=== PATIENT | male | born 1985 | race Two or more races ===

== ENCOUNTER 2024-02-20 02:30 | Emergency (ER) | payer MEDICAID, OTHER ==
[~2024-02-20] VITALS: Ht 160 cm; Wt 80.2 kg
[2024-02-20 02:39] VITALS: BP 139/94; PULSE 85; RESP 16; O2SAT 98
[2024-02-20] MEDS: CALAMINE TOPical LOTION180 ML TOP ONE (03:30)
[2024-02-20] MEDS: DexAMETHasone SOD PHOS 10MG/1ML VIAL INJ IM ONE (03:55)
== END 2024-02-20 04:32 | disposition home or self-care (01) ==
LOC: ER 02:30
DX: L25.9 Unspecified contact dermatitis, unspecified cause (principal)
CPT/HCPCS: 96372; 99283; J1100

== ENCOUNTER 2024-08-15 18:53 | Emergency (ER) | payer MEDICAID ==
[~2024-08-15] VITALS: Ht 160 cm; Wt 79.6 kg
[2024-08-15 20:37] LABS: Chloride 104 mmol/L (98-107); Potassium 4.3 mmol/L (3.5-5.1); Sodium 139 mmol/L (136-145)
[2024-08-15 20:38] LABS: Anion Gap 4 (5-15); Basophils # (auto) 0 10 ^3/uL (0-0.2); Basophils % (auto) 0.2 % (0.0-2.0); Carbon Dioxide 31 mmol/L (20-31); Eosinophils # (auto) 0 10 ^3/uL (0-0.8); Eosinophils % (auto) 0.3 % (0.0-7.0); Hematocrit 42.5 % (41.0-53.0); Hemoglobin 14.8 g/dL (13.5-17.5); Lymphocytes # (auto) 0.9 10 ^3/uL (0.4-5.4); Lymphocytes % (auto) 7.6 % (10.0-50.0); Mean Corpuscular Hemoglobin 30.2 pg (28.0-32.0); Mean Corpuscular Hgb Conc. 34.9 g/dL (32.0-36.0); Mean Corpuscular Volume 86.4 fL (80.0-100.0); Monocytes # (auto) 0.8 10 ^3/uL (0-1.3); Monocytes % (auto) 6.7 % (0.0-12.0); Neutrophils # (auto) 9.9 10 ^3/uL (1.6-8.6); Neutrophils % (auto) 85.2 % (37.0-80.0); Platelet Count (auto) 389 10^3/uL (140-450); Red Blood Cells 4.92 10^6/uL (4.5-5.90); Red Cell Distribution Width 12.4 % (11.8-14.3); White Blood Cell 11.7 10^3/uL (4.4-10.8)
[2024-08-15] MEDS ORDERED: AZIT-43 PO (20:40)
[2024-08-15] MEDS ORDERED: ACET500T58 PO (20:40)
[2024-08-15] MEDS ORDERED: PRED20TA2 PO (20:40)
[2024-08-15] MEDS ORDERED: ALBUAER3 IN (20:40)
--- NOTE | 2024-08-15 20:41 | ED.PDOC ---
SOB-HPI HPI Comments 39-year-old male presents to ER with complaints of cough x2 weeks. Patient reports he has been experiencing productive cough with yellow phlegm along with intermittent body aches/chills and on/off frontal headache x2 weeks. Patient also reports shortness of breath x1 day that he states his present with coughing only, denying any shortness of breath at rest. He reports 8/10 frontal headache pain and reports he has been using [id number] NyQuil for symptoms out relief. Patient presents to ER ambulatory on arrival, afebrile, with steady gait, in no distress. Denies fever, chest pain, hemoptysis, nausea/vomiting, sore throat, earache, dizziness or any further symptoms/complaints Chief Complaint: Flu like Time Seen by MD: 19:35 Primary Care Provider: UNKNOWN Reviewed notes: Nurses Notes, Medications, Allergies Information Source: Patient Mode of Arrival: Ambulatory Past Medical History PAST MEDICAL HISTORY: Asthma, HTN Surgical History: Denies all surgeries Family History Family History: Unknown Social History Smoker: Non-Smoker Alcohol: Denies ETOH Use Drugs: Denies Drug Use Lives In: Home Constitutional: reports: others (As stated in HPI) EENTM: denies: blurred vision, double vision, ear bleeding, ear discharge, ear drainage, ear pain, ear ringing, eye pain, eye redness, hearing loss, mouth pain, mouth swelling, nasal discharge, nose bleeding, nose congestion, nose pain, photophobia, tearing, throat pain, throat swelling, voice changes, others Respiratory: reports: others (As stated in HPI) Cardiovascular: denies: chest pain, dizzy spells, diaphoresis, Dyspnea on exertion, edema, irregular heart beat, left arm pain, lightheadedness, palpitations, PND, syncope, others Gastrointestinal: denies: abdomen distended, abdominal pain, blood streaked bowels, constipated, diarrhea, dysphagia, difficulty swallowing, hematemesis, melena, nausea, poor appetite, poor fluid intake, rectal bleeding, rectal pain, vomiting, others Genitourinary: denies: burning, dysuria, flank pain, frequency, hematuria, incontinence, penile discharge, penile sore, pain, testicle pain, testicle swelling, urgency, others Neurological: reports: others (As stated in HPI) Musculoskeletal: denies: back pain, gout, joint pain, joint swelling, muscle pain, muscle stiffness, neck pain, others Integumetry: denies: bruises, change in color, change in hair/nails, dryness, laceration, lesions, lumps, rash, wounds, others Allergic/Immunocompromised: denies: Difficulty Healing, Frequent Infections, Hives, Itching, others Hematologic/Lymphatic: denies: anemia, blood clots, easy bleeding, easy bruising, swollen glands, others Endocrine: denies: excessive hunger, excessive sweating, excessive thirst, excessive urination, flushing, intolerance to cold, intolerance to heat, unexplained weight gain, unexplained weight loss, others Psychiatric: denies: anxiety, bipolar disorder, depression, hopeless, panic disorder, schizophrenia, sleepless, suicidal, others Physical Exam General Appearance: No Apparent Distress, Obese HEENT: Normal ENT Inspection, PERRL/EOMI, Pharynx Normal, TMs Normal Neck: Full Range of Motion, Non-Tender, Normal Respiratory: Chest Non-Tender, Decreased Breath Sounds (Slightly noted to bilateral upper lung adair), Lungs Clear, No Accessory Muscle Use, No Respiratory Distress Cardiovascular: No Murmur, No Gallop, Regular Rate/Rhythm Breast Exam: Deferred Gastrointestinal: NOT DONE Genitalia: Deferred Pelvic: Deferred Rectal: Deferred Extremities: Normal capillary refill, Normal range of motion Neurologic: Alert, 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 Was a procedure done?: No Sedation Sedation?: No Differential Dx Differential Diagnosis: Pneumonia, Respiratory Distress, Pharyngitis, URI X-Ray, Labs, Meds, VS Vital Signs Date Time Temp Pulse Resp B/P (MAP) Pulse Ox O2 Delivery O2 Flow Rate FiO2 08/15/24 20:04 98.5 91 18 140/92 (108) 99 Lab Test 08/15/24 20:00 Range/Units White Blood Count 11.7 H 4.4-10.8 10^3/uL Red Blood Count 4.92 4.5-5.90 10^6/uL Hemoglobin 14.8 13.5-17.5 g/dL Hematocrit 42.5 41.0-53.0 % Mean Corpuscular Volume 86.4 80.0-100.0 fL Mean Corpuscular Hemoglobin 30.2 28.0-32.0 pg Mean Corpuscular Hemoglobin Concent 34.9 32.0-36.0 g/dL Red Cell Distribution Width 12.4 11.8-14.3 % Platelet Count 389 140-450 10^3/uL Mean Platelet Volume 6.8 L 6.9-10.8 fL Neutrophils (%) (Auto) 85.2 H 37.0-80.0 % Lymphocytes (%) (Auto) 7.6 L 10.0-50.0 % Monocytes (%) (Auto) 6.7 0.0-12.0 % Eosinophils (%) (Auto) 0.3 0.0-7.0 % Basophils (%) (Auto) 0.2 0.0-2.0 % Neutrophils # (Auto) 9.9 H 1.6-8.6 10 ^3/uL Lymphocytes # (Auto) 0.9 0.4-5.4 10 ^3/uL Monocytes # (Auto) 0.8 0-1.3 10 ^3/uL Eosinophils # (Auto) 0 0-0.8 10 ^3/uL Basophils # (Auto) 0 0-0.2 10 ^3/uL Nucleated Red Blood Cells 0.0 % Sodium Level 139 136-145 mmol/L Potassium Level 4.3 3.5-5.1 mmol/L Chloride Level 104 98-107 mmol/L Carbon Dioxide Level 31 20-31 mmol/L Anion Gap 4 L 5-15 Blood Urea Nitrogen 10 9-23 mg/dL Creatinine 0.92 0.700-1.30 mg/dL Glomerular Filtration Rate Calc 107 >90 mL/min BUN/Creatinine Ratio 10.9 10.0-20.0 Serum Glucose 126 H 74-106 mg/dL Calcium Level 10.0 8.7-10.4 mg/dL PATIENT: RANDEE LINNEBODIOACCT: [id number]: [id number] : 1985 LOC: ER ROOM / BED: / AGE / SEX: 39 / M ADM STATUS: REG ER SERVICE 51 ORDERING PHYSICIAN: LIU DELACRUZ PROCEDURE(s): CXR2 - CHEST TWO VIEWS ROUTINE REASON: cough ORDER NUMBER(s): [id number], ACCESSION NUMBER(s): [id number] XY CHEST TWO VIEWS ROUTINE CLINICAL HISTORY: cough COMPARISON: None TECHNIQUE: Frontal and lateral view of the chest was obtained FINDINGS: Lines and Tubes: None Lungs: No focal consolidation. Pleura: No effusion. No pneumothorax. Cardiomediastinal contours: Unremarkable Bones: No acute osseous abnormality. IMPRESSION: 1. No radiographic evidence of acute cardiopulmonary disease. HS:Y ATED BY: EMILIANO ARRINGTON DO DICTATED DATE/TIME: 08/15/242042 SIGNED BY: EMILIANO ARRINGTON DO SIGNED DATE/TIME: 08/15/242042 CC: Solu-Medrol 125 mg IM ordered Rocephin 1 g IM ordered Duo nebulizer treatment ordered CBC reviewed-WBC 11.7 BMP reviewed without any significant abnormalities Chest x-ray reviewed Patient reported improvement in symptoms, denied any shortness of breath and in no distress prior to discharge Advised to drink plenty of fluids Advised to follow up with PCP in 1-2 days Patient verbalized understanding and agreeable with current plan of care Advised to return to ER immediately if symptoms worsen Images Reviewed?: Images reviewed and evaluated by me Time of 1ST Reevaluation: 20:12 Reevaluation 1ST: N/A Time of 2ND Reevaluation: 20:50 Reevaluation 2ND: Improved Patient Education/Counseling: Diagnosis, Treatment, Prognosis, Need For Follow Up Family Education/Counseling: No Family Present Departure 1 Departure Time of Disposition: 20:52 Impression: Primary Impression: Acute asthmatic bronchitis Disposition: HOME / SELF CARE / HOMELESS Condition: Stable e-Prescriptions Albuterol Sulfate (VENTOLIN MDI) 90 Mcg Ih 2 PUFF IN Q6HPRN, #1 INH 0 Refills Prov: LIU DELACRUZ 08/15/24 Acetaminophen (Acetaminophen) 500 Mg Tab 500 MG PO Q4HPRN, #30 TAB 0 Refills Prov: LIU DELACRUZ 08/15/24 Prednisone (Prednisone) 20 Mg Tab 20 MG PO BID for 5 Days, #10 TAB 0 Refills Prov: LIU DELACRUZ 08/15/24 Azithromycin (Azithromycin) 250 Mg Tab 250 MG PO DAILY MDD 500 for 5 Days, #6 TAB 0 Refills 2 TABLETS ORALLY ON DAY ONE, THEN 1 TABLET ORALLY DAILY FOR 4 DAYS Prov: LIU DELACRUZ 08/15/24 Discharged With: Self Critical Care Note Critical Care Time?: No Stability Stability form required: No Heart Score Heart Score: Heart Score Response (Comments) Value History N/A 0 EKG N/A 0 Age N/A 0 Risk Factors N/A 0 Troponin N/A 0 Total 0 LIU DELACRUZ Aug 15, 2024 20:41
[2024-08-15 20:43] LABS: BUN/Creatinine Ratio 10.9 (10.0-20.0); Blood Urea Nitrogen 10 mg/dL (9-23)
[2024-08-15 20:44] LABS: Glucose 126 mg/dL (74-106)
--- NOTE | 2024-08-15 20:45 | DVH ---
XY CHEST TWO VIEWS ROUTINE CLINICAL HISTORY: cough COMPARISON: None TECHNIQUE: Frontal and lateral view of the chest was obtained FINDINGS: Lines and Tubes: None Lungs: No focal consolidation. Pleura: No effusion. No pneumothorax. Cardiomediastinal contours: Unremarkable Bones: No acute osseous abnormality. IMPRESSION: 1. No radiographic evidence of acute cardiopulmonary disease. HS:Y
[2024-08-15 23:18] VITALS: BP 126/78; PULSE 80; RESP 16; TEMP 98.2; O2SAT 98
[2024-08-15] MEDS: methylPREDNISolone SOD SUCC 125 MG/2 ML VL IM ONE (23:31)
[2024-08-15] MEDS: cefTRIAXone SOD 1,000 MG VL IM ONE (23:32)
[2024-08-15] MEDS: ALBUTEROL SULF 2.5 MG/0.5ML(0.5%) NEB SOLN NEB ONE (23:35)
[2024-08-15] MEDS: IPRATROPIUM BROM 0.5 MG/2.5ML INH SOL NEB ONE (23:35)
== END 2024-08-16 00:10 | disposition home or self-care (01) ==
LOC: ER 18:53
DX: J45.909 Unspecified asthma, uncomplicated (principal); I10 Essential (primary) hypertension
CPT/HCPCS: 36415; 71046; 80048; 85025; 94640; 96372; 99284; J0696; J2919

== ENCOUNTER 2024-08-17 13:28 | Inpatient (IN) | payer MEDICAID ==
[~2024-08-17] VITALS: Ht 160 cm; Wt 79.4 kg
[~2024-08-17 13:28] MED LIST: ACET500T58 PO; ALBUAER3 IN; AZIT-43 PO; PRED20TA2 PO
[2024-08-17] MEDS: methylPREDNISolone SOD SUCC 125 MG/2 ML VL IV ONE (14:01)
--- NOTE | 2024-08-17 14:03 | DVH ---
XY CHEST TWO VIEWS ROUTINE CLINICAL HISTORY: cough COMPARISON: XY CHEST TWO VIEWS ROUTINE on DOS: 08/15/24 TECHNIQUE: Frontal and lateral view of the chest was obtained FINDINGS: Lines and Tubes: None Lungs: No focal consolidation. Pleura: No effusion. No pneumothorax. Cardiomediastinal contours: Unremarkable Bones: No acute osseous abnormality. IMPRESSION: No acute cardiopulmonary disease.
[2024-08-17] MEDS: ALBUTEROL SULF 2.5 MG/0.5ML(0.5%) NEB SOLN HHN ONE (14:04)
[2024-08-17] MEDS: IPRATROPIUM BROM 0.5 MG/2.5ML INH SOL HHN ONE (14:04)
--- NOTE | 2024-08-17 14:04 | ED.PDOC ---
SOB-HPI HPI Comments 39y M who presents to the ED for chief complaint of shortness of breath. Pt states he has been having shortness of breath for the past 2 weeks. Pt states over the past 3 days with noted increased cough with clear phlegm, and states it has gotten progressively worse and states he has started to get shortness of breath with exertion with noted increased chest pain while taking deep breaths. Pt denies any recent sick contacts. Pt otherwise denies any other symptoms. Pt denies any other symptoms at this time. Chief Complaint: shortness of breath Time Seen by MD: 13:44 Primary Care Provider: UNKNOWN Reviewed notes: Medications, Allergies Information Source: Patient Mode of Arrival: Ambulatory Brought in by: self Severity: Moderate Timing: Days, Weeks Duration: Since onset Context: At Rest, With Light Exertion PE Risk Factors: None History of: Asthma Prehospital treatment: None Modifying Factors: Exertion Associated Signs and Symptoms: Wheeze, Cough, Nasal Congestion Quality: Pressure Radiation: No Radiation If cough with SOB: Productive, White Past Medical History PAST MEDICAL HISTORY: Asthma, HTN Surgical History: Denies all surgeries Family History Family History: Unknown Social History Smoker: Non-Smoker Alcohol: Denies ETOH Use Drugs: Denies Drug Use Lives In: Home Constitutional: denies: chills, diaphoresis, fatigue, fever, malaise, sweats, weakness, others EENTM: denies: blurred vision, double vision, ear bleeding, ear discharge, ear drainage, ear pain, ear ringing, eye pain, eye redness, hearing loss, mouth pain, mouth swelling, nasal discharge, nose bleeding, nose congestion, nose pain, photophobia, tearing, throat pain, throat swelling, voice changes, others Respiratory: reports: cough, shortness of breath; denies: hemoptysis, orthopnea, SOB at rest, SOB with excertion, stridor, wheezing, others Cardiovascular: reports: chest pain; denies: dizzy spells, diaphoresis, Dyspnea on exertion, edema, irregular heart beat, left arm pain, lightheadedness, palpitations, PND, syncope, others Gastrointestinal: denies: abdomen distended, abdominal pain, blood streaked bowels, constipated, diarrhea, dysphagia, difficulty swallowing, hematemesis, melena, nausea, poor appetite, poor fluid intake, rectal bleeding, rectal pain, vomiting, others Genitourinary: denies: burning, dysuria, flank pain, frequency, hematuria, incontinence, penile discharge, penile sore, pain, testicle pain, testicle swelling, urgency, others Neurological: denies: dizziness, fainting, headache, left sided numbness, left sided weakness, numbness, paresthesia, pre-existing deficit, right sided numbness, right sided weakness, seizure, speech problems, tingling, tremors, weakness, others Musculoskeletal: denies: back pain, gout, joint pain, joint swelling, muscle pain, muscle stiffness, neck pain, others Integumetry: denies: bruises, change in color, change in hair/nails, dryness, laceration, lesions, lumps, rash, wounds, others Allergic/Immunocompromised: denies: Difficulty Healing, Frequent Infections, Hives, Itching, others Hematologic/Lymphatic: denies: anemia, blood clots, easy bleeding, easy bruising, swollen glands, others Endocrine: denies: excessive hunger, excessive sweating, excessive thirst, excessive urination, flushing, intolerance to cold, intolerance to heat, unexplained weight gain, unexplained weight loss, others Psychiatric: denies: anxiety, bipolar disorder, depression, hopeless, panic disorder, schizophrenia, sleepless, suicidal, others All Other Systems: Reviewed and Negative Physical Exam General Appearance: Severe Distress HEENT: Normal ENT Inspection, Pharynx Normal, TMs Normal Neck: Full Range of Motion, Non-Tender, Normal, Normal Inspection Respiratory: Chest Non-Tender, Decreased Breath Sounds, No Accessory Muscle Use, Respiratory Distress, Wheezing Cardiovascular: No Edema, No JVD, No Murmur, No Gallop, Tachycardia Breast Exam: Deferred Gastrointestinal: No Organomegaly, Non Tender, No Pulsatile Mass, Normal Bowel Sounds, Soft Genitalia: Deferred Pelvic: Deferred Rectal: Deferred Extremities: No calf tenderness, Normal capillary refill, Normal inspection, Normal range of motion, Non-tender, No pedal edema Musculoskeletal : Apperance: Normal Neurologic: Alert, 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 Was a procedure done?: No Differential Dx Differential Diagnosis: Asthma, Bronchitis, Pneumonia, Pulmonary Embolism, Respiratory Distress, Pharyngitis, URI Comments COVID, Influenza A and B, X-Ray, Labs, Meds, VS Vital Signs Date Time Temp Pulse Resp B/P (MAP) Pulse Ox O2 Delivery O2 Flow Rate FiO2 08/17/24 14:04 16 99 Room Air* 0 21 08/17/24 14:04 78 08/17/24 13:43 98.4 78 20 138/82 (100) 99 08/17/24 13:43 98.4 78 20 138/82 (100) 99 98.4 Lab Test 08/17/24 14:04 Range/Units White Blood Count 12.5 H 4.4-10.8 10^3/uL Red Blood Count 4.78 4.5-5.90 10^6/uL Hemoglobin 14.5 13.5-17.5 g/dL Hematocrit 41.8 41.0-53.0 % Mean Corpuscular Volume 87.4 80.0-100.0 fL Mean Corpuscular Hemoglobin 30.4 28.0-32.0 pg Mean Corpuscular Hemoglobin Concent 34.8 32.0-36.0 g/dL Red Cell Distribution Width 12.0 11.8-14.3 % Platelet Count 402 140-450 10^3/uL Mean Platelet Volume 6.6 L 6.9-10.8 fL Neutrophils (%) (Auto) 89.7 H 37.0-80.0 % Lymphocytes (%) (Auto) 6.1 L 10.0-50.0 % Monocytes (%) (Auto) 3.3 0.0-12.0 % Eosinophils (%) (Auto) 0.1 0.0-7.0 % Basophils (%) (Auto) 0.8 0.0-2.0 % Neutrophils # (Auto) 11.2 H 1.6-8.6 10 ^3/uL Lymphocytes # (Auto) 0.8 0.4-5.4 10 ^3/uL Monocytes # (Auto) 0.4 0-1.3 10 ^3/uL Eosinophils # (Auto) 0 0-0.8 10 ^3/uL Basophils # (Auto) 0.1 0-0.2 10 ^3/uL Nucleated Red Blood Cells 0.0 % D-Dimer, Quantitative 0.30 0.0-0.49 mg/L FEU Sodium Level 142 136-145 mmol/L Potassium Level 3.9 3.5-5.1 mmol/L Chloride Level 105 98-107 mmol/L Carbon Dioxide Level 31 20-31 mmol/L Anion Gap 6 5-15 Blood Urea Nitrogen 14 9-23 mg/dL Creatinine 0.92 0.700-1.30 mg/dL Glomerular Filtration Rate Calc 107 >90 mL/min BUN/Creatinine Ratio 15.2 10.0-20.0 Serum Glucose 132 H 74-106 mg/dL Calcium Level 10.1 8.7-10.4 mg/dL Current Medications Medications (Trade) Dose Ordered Sig/Bc Route Start Time Stop Time Status Last Admin Methylprednisolone Sodium Succinate (Solu Medrol) 125 mg ONCE ONCE IV 08/17/24 13:45 08/17/24 13:46 DC 08/17/24 14:01 Ipratropium [place] (Atrovent Medneb) 1 mg ONCE ONCE N 08/17/24 13:45 08/17/24 13:46 DC 08/17/24 14:04 Albuterol (Ventolin Medneb) 20 mg ONCE ONCE N 08/17/24 13:45 08/17/24 13:46 DC 08/17/24 14:04 Sodium Chloride 1,000 ml @ 1,000 mls/hr Q1H ONCE IV 08/17/24 14:45 08/17/24 15:44 08/17/24 14:53 PROCEDURE(s): CXR2 - CHEST TWO VIEWS ROUTINE IMPRESSION: No acute cardiopulmonary disease. The patient's CBC shows an elevated white blood cell count 12.5 The rest of the CBC and chemistry panel is within limits The D-dimer is negative The patient was given an albuterol and Atrovent continuous breathing treatment The patient was given Solu-Medrol 125 mg IV push At this time, the patient continues to have wheezing being admitted with a diagnosis of status asthmaticus. Images Reviewed?: Images reviewed and evaluated by me Time of 1ST Reevaluation: 14:15 Reevaluation 1ST: Unchanged Patient Education/Counseling: Diagnosis, Treatment Family Education/Counseling: No Family Present Additional Information - I reviewed the following notes from patient's past medical encounters: - The following tests were ordered, and results were reviewed by me: CBC, BMP, UA, D-Dimer, COVID, Influenza A and B, chest x-ray - Additional information was gathered from interviewing the following independent Historian: none - I reviewed and agreed with the following test results read by other provider: radiologist - I discussed treatments and results with medical personnel and: patient Departure 1 Departure Time of Disposition: 15:13 Impression: Primary Impression: Status asthmaticus Qualified Codes: J45.52 - Severe persistent asthma with status asthmaticus Disposition: ADMITTED INPATIENT Admit to: Tele Condition: Fair Critical Care Note Critical Care Time?: Yes (35 min-critical care time only) Stability Stability form required: Yes Unstable for transfer: Telemetry monitoring (Telemetry monitoring required), ED Physician Assesment (Clinical assesment) Heart Score Heart Score: Heart Score Response (Comments) Value History N/A 0 EKG N/A 0 Age N/A 0 Risk Factors N/A 0 Troponin N/A 0 Total 0 I personally scribed for VALENTE GAR MD ([email or web address]) on 08/17/24 at 14:04. Electronically submitted by Cal Curtis ([email or web address]). I personally scribed for VALENTE GAR MD ([email or web address]) on 08/17/24 at 14:09. Electronically submitted by Cal Curtis ([email or web address]). VALENTE GAR MD Aug 17, 2024 14:04
[2024-08-17 14:21] LABS: Basophils # (auto) 0.1 10 ^3/uL (0-0.2); Basophils % (auto) 0.8 % (0.0-2.0); Eosinophils # (auto) 0 10 ^3/uL (0-0.8); Eosinophils % (auto) 0.1 % (0.0-7.0); Hematocrit 41.8 % (41.0-53.0); Hemoglobin 14.5 g/dL (13.5-17.5); Lymphocytes # (auto) 0.8 10 ^3/uL (0.4-5.4); Lymphocytes % (auto) 6.1 % (10.0-50.0); Mean Corpuscular Hemoglobin 30.4 pg (28.0-32.0); Mean Corpuscular Hgb Conc. 34.8 g/dL (32.0-36.0); Mean Corpuscular Volume 87.4 fL (80.0-100.0); Monocytes # (auto) 0.4 10 ^3/uL (0-1.3); Monocytes % (auto) 3.3 % (0.0-12.0); Neutrophils # (auto) 11.2 10 ^3/uL (1.6-8.6); Neutrophils % (auto) 89.7 % (37.0-80.0); Platelet Count (auto) 402 10^3/uL (140-450); Red Blood Cells 4.78 10^6/uL (4.5-5.90); White Blood Cell 12.5 10^3/uL (4.4-10.8)
[2024-08-17 14:34] LABS: Anion Gap 6 (5-15); Carbon Dioxide 31 mmol/L (20-31); Chloride 105 mmol/L (98-107); Potassium 3.9 mmol/L (3.5-5.1); Sodium 142 mmol/L (136-145)
[2024-08-17 14:35] LABS: Calcium 10.1 mg/dL (8.7-10.4)
[2024-08-17 14:40] LABS: BUN/Creatinine Ratio 15.2 (10.0-20.0); Blood Urea Nitrogen 14 mg/dL (9-23); Glucose 132 mg/dL (74-106)
[2024-08-17] MEDS: SODIUM CHLORIDE 0.9% 1,000 ML IV ONE (14:53)
[2024-08-17] MEDS ORDERED: NITROGLYCERIN 0.4 MG SL TAB SL PRN (21:00)
[2024-08-17] MEDS ORDERED: MORPHINE SULFATE INJ 2 MG/ml SYRG IV PRN (21:00)
--- NOTE | 2024-08-17 21:06 | DVHHPRES ---
History of Present Illness Resident Creating Document: BRYAN MORRIS RESIDENT History of Present Illness Mr. Vergara, a 39-year-old Nonsmoker male with a history of asthma, seasonal allergy, GERD and essential hypertension presented to the emergency department with moderate shortness of breath, which he has been experiencing for the past two weeks worsened over last three days, with an increased cough producing clear phlegm and shortness of breath occurring with exertion, associated with increased chest pressure while taking deep breaths, wheezing, cough, and nasal congestion. He denies any recent sick contacts, fever, chills, travel, and other symptoms. He has not received any prehospital treatment and came to the ED with signs and symptoms of status asthmaticus needing in- hospital treatment at telemetry floor. Cardiovascular: HTN Pulmonary: Asthma GI: GERD Rheumatologic: Other (Seasonal allergy) Past Surgical History: None Family History: None (Noncontributory) Smoke: No ALCOHOL: occassional Drugs: None Lives: with Family Domestic Violence: Neg Review of Systems Constitutional: No: Fever, Chills, Sweats, Weakness, Malaise, Other Eyes: No: Pain, Vision change, Conjunctivae inflammation, Eyelid inflammation, Other, Redness ENT: Nose discharge, Nose congestion; No: Ear pain, Ear discharge, Nose pain, Mouth pain, Mouth swelling, Throat pain, Throat swelling, Other Respiratory: Cough, Shortness of breath, SOB with excertion, Wheezing, Sputum, Wheezing, Other (Chest pressure); No: Dry, Hemoptysis, Pleuritic Pain Cardiovascular: No: Chest Pain, Palpitations, Orthopnea, Paroxysmal Noc. Dyspnea, Edema, Lt Headedness, Other Gastrointestinal: No: Nausea, Vomiting, Abdominal Pain, Diarrhea, Constipation, Melena, Hematochezia, Other Genitourinary: No Dysuria, No Frequency, No Incontinence, No Hematuria, No Retention, No Other Musculoskeletal: No: other, neck pain, shoulder pain, arm pain, back pain, hand pain, leg pain, foot pain Skin: No: Rash, Lesions, Jaundice, Bruising, Other Neurological: No: Weakness, Numbness, Incoordination, Change in speech, Confusion, Seizures, Other Allergies: Coded Allergies: NO KNOWN ALLERGIES (Unverified , 02/20/24) Medications Current Medications Medications Dose Ordered Sig/Bc Route Start Time Stop Time Status Last Admin Dose Admin Nitroglycerin 0.4 mg Q5MINP PRN SL 08/17/24 21:00 UNV Morphine Sulfate 2 mg Q30M PRN IV 08/17/24 21:00 UNV Exam Vital Signs Vital Signs Date Time Temp Pulse Resp B/P (MAP) Pulse Ox O2 Delivery O2 Flow Rate FiO2 08/17/24 20:42 98.2 96 17 148/87 (107) 99 98.2 08/17/24 14:04 Room Air* 0 21 General Appearance: Alert, Oriented X3, Cooperative, mild distress (At presentation patient presented with moderate distress but with repeat examination patient found to have calmed down.) HEENT: Atraumatic, PERRLA, EOMI, Mucous membr. moist/pink, Other (No nasal mucosa polyp noted) Respiratory: Clear to auscultation, Other (Slow air movement, mild wheezing bilateral diffuse. No use of accessory muscles) Cardiovascular: Regular rate, Normal S1, Normal S2, No murmurs Abdominal: Normal bowel sounds, Soft, No tenderness, No hepatospenomegaly, No masses Extremities: No clubbing, No cyanosis, No edema Skin: No rashes, No breakdown, No significant lesion Neuro: Normal gait, Normal speech Psych/Mental Status: Mental status NL, Mood NL Labs/Xrays Labs Test 08/17/24 14:04 Range/Units White Blood Count 12.5 H 4.4-10.8 10^3/uL Red Blood Count 4.78 4.5-5.90 10^6/uL Hemoglobin 14.5 13.5-17.5 g/dL Hematocrit 41.8 41.0-53.0 % Mean Corpuscular Volume 87.4 80.0-100.0 fL Mean Corpuscular Hemoglobin 30.4 28.0-32.0 pg Mean Corpuscular Hemoglobin Concent 34.8 32.0-36.0 g/dL Red Cell Distribution Width 12.0 11.8-14.3 % Platelet Count 402 140-450 10^3/uL Mean Platelet Volume 6.6 L 6.9-10.8 fL Neutrophils (%) (Auto) 89.7 H 37.0-80.0 % Lymphocytes (%) (Auto) 6.1 L 10.0-50.0 % Monocytes (%) (Auto) 3.3 0.0-12.0 % Eosinophils (%) (Auto) 0.1 0.0-7.0 % Basophils (%) (Auto) 0.8 0.0-2.0 % Neutrophils # (Auto) 11.2 H 1.6-8.6 10 ^3/uL Lymphocytes # (Auto) 0.8 0.4-5.4 10 ^3/uL Monocytes # (Auto) 0.4 0-1.3 10 ^3/uL Eosinophils # (Auto) 0 0-0.8 10 ^3/uL Basophils # (Auto) 0.1 0-0.2 10 ^3/uL Nucleated Red Blood Cells 0.0 % D-Dimer, Quantitative 0.30 0.0-0.49 mg/L FEU Sodium Level 142 136-145 mmol/L Potassium Level 3.9 3.5-5.1 mmol/L Chloride Level 105 98-107 mmol/L Carbon Dioxide Level 31 20-31 mmol/L Anion Gap 6 5-15 Blood Urea Nitrogen 14 9-23 mg/dL Creatinine 0.92 0.700-1.30 mg/dL Glomerular Filtration Rate Calc 107 >90 mL/min BUN/Creatinine Ratio 15.2 10.0-20.0 Serum Glucose 132 H 74-106 mg/dL Calcium Level 10.1 8.7-10.4 mg/dL [place] [id number] Ph: [phone] DIAGNOSTIC IMAGING Diagnostic Imaging Report : [id number] Signed PATIENT: CECILIA MCKENNA ACCT: [id number] UNIT: [id number] : 1985 LOC: ER ROOM / BED: / AGE / SEX: 39 / M ADM STATUS: REG ER SERVICE [id number] ORDERING PHYSICIAN: VALENTE GAR MD PROCEDURE(s): CXR2 - CHEST TWO VIEWS ROUTINE REASON: cough ORDER NUMBER(s): [id number], ACCESSION NUMBER(s): [id number] CHEST TWO VIEWS ROUTINE CLINICAL HISTORY: cough COMPARISON: XY CHEST TWO VIEWS ROUTINE on DOS: 08/15/24 TECHNIQUE: Frontal and lateral view of the chest was obtained FINDINGS: Lines and Tubes: None Lungs: No focal consolidation. Pleura: No effusion. No pneumothorax. Cardiomediastinal contours: Unremarkable Bones: No acute osseous abnormality. IMPRESSION: No acute cardiopulmonary disease. ATED BY: CHAPARRO WEST MD DICTATED DATE/TIME: 08/17/241400 SIGNED BY: CHAPARRO WEST MD SIGNED DATE/TIME: 08/17/24 140 CC: Assessment/Plan Assessment/Plan Assessment: a 39-year-old nonsmoker male with a history of asthma, seasonal allergies, GERD, and essential hypertension, presented to the emergency department with worsening shortness of breath over the past two weeks, accompa nied by increased cough with clear phlegm, chest pressure, wheezing, and nasal congestion, requiring in-hospital treatment for status asthmaticus. Plan: #1 Acute asthma exacerbation/ status asthmaticus: Status post albuterol and ipratropium continuous breathing treatment, Solu-Medrol 125 mg IV , magnesium 2 g IV, Benadryl, wheezing and breathing discomfort improved but persisted. continue treatments along with 5 days of prednisone oral 40 mg daily. Blood gas reassuring. #2 Chronic asthma: At home patient is on albuterol, Pulmicort, montelukast , no noncompliance noted. #3 acute hypoxic respiratory failure: No baseline home oxygen, presumably on 2 L of nasal cannula oxygen, wean as tolerated We will keep the SpO2 of 94%. #4 Possible trigger has broad differential: Including atopic/allergic trigger, seasonal allergy, viral respiratory infection, bacterial respiratory infection, heart failure, inadequate treatment and noncompliance. Viral panel including COVID and influenza unremarkable, CXR unremarkable, sputum culture, blood cultur e pending, BNP unremarkable, troponin/EKG non concerning, reasonable treatment and patient denies of noncompliance. Outpatient follow up with sorting livestock worker might be helpful at this point. Possible unknown allergy trigger could be a possible reason as well. Unlikely CAP , at this point no need of antibiotics but can be reassessed in need of antibiotics during the course of hospit alization. #5 seasonal allergy: At home patient on montelukast 10 mg. Continue in- hospital, added daily Claritin 10 mg daily. #6 hyperlipidemia: At home patient on atorvastatin 40 mg daily, we will check lipid panel and HbA1c in this hospitalization. #7 GERD: At home on omeprazole, continue in-hospital pantoprazole. #8 essential hypertension: Lisinopril 40 mg daily , holding lisinopril as lisinopril itself could be a trigger for allergic reaction. We will change lisinopril to amlodipine when needed. Target blood pressure 140 /90 mm of mercury or below. #9 Hyperthyroidism to rule out: No known hypothyroidism. TSH low, free T3-T4 free pending, treatment based on the thyroxine level. PUD prophylaxis: protonix 40mg oral daily DVT prophylaxis: Levonox 40mg Subcutaneous Daily with brisk movement. Barriers to discharge: Medical diagnosis and management in progress. Patient lives with family. Independent for ADL. PT and SW needs unlikely in this hospitalization. PCP: Michael Hardwick. Specialist Relevant To Admission: Former Hand, yet to establish care. Case discussed with Dr. Andrea. Code Status: Full Code. Care discussion needed total 21 minutes bedside. If patient continues to remain hemodynamically stable consider downgrading to med surge. Plan discussed with: Patient, Other (Primary team, RN.) My Orders Orders - BRYAN MORRSI Procedure Category Date Status Time Admit ADMIT 08/17/24 Transmitted 20:54 Nitroglycerin PHA 08/17/24 Logged Sublingual (Ntrostat 21:00 Morphine Sulfate PHA 08/17/24 Logged Injection 21:00 Oxygen By Nasal RT 08/17/24 Transmitted Cannula 20:54 Stat Ekg For Chest [facility] 08/17/24 In Process Pain 20:54 Notify Md Of Changes [facility] 08/17/24 In Process From Base 20:54 Cable Tester For [facility] 08/17/24 In Process 24 Hours 20:54 Emergency Dysrhythmia [facility] 08/17/24 In Process Protocol 20:54 Rhythm Strips Once [facility] 08/17/24 In Process Every Shift 20:54 Date of Service: Aug 17, 2024 Billing Provider: ROME ANDREA MD Common Visit Codes: [id number] INP/OBS CARE (HIGH) BRYAN MORRIS Aug 17, 2024 21:06 ROME ANDREA MD Aug 20, 2024 18:29
[2024-08-17 22:07] LABS: Base Excess -0.9 mmol/L (-2.0-3.0)
[2024-08-17 22:23] VITALS: PULSE 86; RESP 16; O2SAT 94
[2024-08-17] MEDS: ALBUTEROL SULF 2.5 MG/0.5ML(0.5%) NEB SOLN NEB SCH (22:32)
[2024-08-17] MEDS: IPRATROPIUM BROM 0.5 MG/2.5ML INH SOL NEB SCH (22:32)
[2024-08-17 22:34] VITALS: PULSE 85; RESP 16; O2SAT 94; O2SAT 99
[2024-08-17 22:45] VITALS: BP 138/82; PULSE 85; RESP 16; TEMP 98.4; O2SAT 94
[2024-08-17 22:47] LABS: Albumin 4.4 g/dL (3.2-4.8); Alkaline Phosphatase 89 U/L (46-116); Anion Gap 8 (5-15); Aspartate Aminotransferase 30 U/L (13-40); BUN/Creatinine Ratio 15.2 (10.0-20.0); Bilirubin, Total 0.3 mg/dL (0.2-1.0); Blood Alcohol 3.1 mg/dL (<10); Blood Urea Nitrogen 14 mg/dL (9-23); Carbon Dioxide 26 mmol/L (20-31); Chloride 107 mmol/L (98-107); Potassium 4.4 mmol/L (3.5-5.1); Sodium 141 mmol/L (136-145)
[2024-08-17 22:48] LABS: Alanine Aminotransferase 81 U/L (7-40); Glucose 223 mg/dL (74-106)
[2024-08-17] MEDS: PANTOPRAZOLE 40 MG TAB PO ONE (22:54)
[2024-08-17] MEDS: diphenhdrAMINE HCL 25 MG CAP PO ONE (22:54)
[2024-08-17] MEDS: ENOXAPARIN SOD 40 MG/0.4 ML SYRINGE SC ONE (22:55)
[2024-08-17] MEDS: MAGNESIUM SULFATE 1GM/100ML 100 ML IV SCH (22:58)
[2024-08-17 23:45] LABS: Rapid Influenza A Negative (Negative); Rapid Influenza B Negative (Negative)
[2024-08-17 23:46] LABS: COVID19 ANTIGEN SOFIA FIA NEGATIVE (NEGATIVE)
[2024-08-18] VITALS (20 sets, daily range): BP systolic 107–146; BP diastolic 67–84; PULSE 53–83; RESP 13–18; TEMP 97.6–98; O2SAT 92–100
[2024-08-18] MEDS ORDERED: LISI40TA16 PO (06:31)
[2024-08-18] MEDS ORDERED: MONT-8 PO (06:31)
[2024-08-18 06:33] LABS: Free T3 3.01 pg/mL (2.3-4.2); Free T4 (Free Thyroxine) 0.97 ng/dL (0.89-1.76)
[2024-08-18] MEDS: MONTELUKAST SODIUM 10 MG TAB PO ONE (07:10)
[2024-08-18] MEDS: PANTOPRAZOLE 40 MG TAB PO SCH (07:10)
[2024-08-18 08:25] LABS: Basophils # (auto) 0 10 ^3/uL (0-0.2); Basophils % (auto) 0.2 % (0.0-2.0); Eosinophils # (auto) 0 10 ^3/uL (0-0.8); Hematocrit 38.7 % (41.0-53.0); Hemoglobin 13.3 g/dL (13.5-17.5); Lymphocytes # (auto) 1.5 10 ^3/uL (0.4-5.4); Lymphocytes % (auto) 10.1 % (10.0-50.0); Mean Corpuscular Hgb Conc. 34.4 g/dL (32.0-36.0); Monocytes % (auto) 6.5 % (0.0-12.0); Neutrophils # (auto) 12.2 10 ^3/uL (1.6-8.6); Neutrophils % (auto) 83.2 % (37.0-80.0); Platelet Count (auto) 379 10^3/uL (140-450); Red Blood Cells 4.45 10^6/uL (4.5-5.90); White Blood Cell 14.7 10^3/uL (4.4-10.8)
[2024-08-18 08:43] LABS: Albumin 4.1 g/dL (3.2-4.8); Alkaline Phosphatase 79 U/L (46-116); Anion Gap 5 (5-15); Aspartate Aminotransferase 26 U/L (13-40); BUN/Creatinine Ratio 15.5 (10.0-20.0); Blood Urea Nitrogen 13 mg/dL (9-23); Calcium 9.9 mg/dL (8.7-10.4); Carbon Dioxide 31 mmol/L (20-31); Chloride 107 mmol/L (98-107); Cholesterol 161 mg/dL (< 200); HDL Cholesterol 43 mg/dL (40-59); Sodium 143 mmol/L (136-145); Total Protein 6.7 g/dL (5.7-8.2); Triglycerides 100 mg/dL (< 150)
[2024-08-18 08:50] LABS: Alanine Aminotransferase 69 U/L (7-40); Glucose 107 mg/dL (74-106); LDL Cholesterol 101 mg/dL (< 100)
[2024-08-18 08:59] LABS: Urine Bacteria None Seen /hpf (None Seen); Urine WBC None Seen /hpf (0 - 3)
[2024-08-18 09:06] LABS: Bilirubin, Total 0.4 mg/dL (0.2-1.0)
[2024-08-18 09:18] LABS: Urine Blood Negative /uL (Negative); Urine Clarity Clear (Clear); Urine Protein, UAD Negative (Negative); Urine Specific Gravity 1.012 (1.001-1.035); Urine Urobilinogen Normal (Negative); Urine pH 6.5 (5.0-9.0)
[2024-08-18 09:19] LABS: Urine Color Light-Yellow (Yellow)
[2024-08-18 09:22] LABS: Amphetamine Screen, Urine Neg (NEGATIVE); Barbiturate Scree,Urine Neg (NEGATIVE); Benzodiazephine Screen, Urine Neg (NEGATIVE); Cocaine Screen, Urine Neg (NEGATIVE); Opiate Scree,Urine Neg (NEGATIVE)
[2024-08-18 09:23] LABS: Cannabinoid Screen, Urine Neg (NEGATIVE); Phencyclidine Screen, Urine Neg (NEGATIVE)
[2024-08-18] MEDS: predniSONE 20 MG TAB PO SCH (10:03)
[2024-08-18] MEDS: amLODIPine BESYLATE 5 MG TAB PO SCH (10:03)
[2024-08-18] MEDS: LORATADINE 10 MG TAB PO SCH (10:03)
--- NOTE | 2024-08-18 10:06 | DVH ---
CT ABDOMEN AND PELVIS WITHOUT CONTRAST CLINICAL HISTORY: possible intraabdominal infection source. TECHNIQUE: Multiple contiguous axial images of the abdomen and pelvis without intravenous contrast. The images were reformatted degenerate coronal and sagittal reconstructions. All CT scans at this medical facility are performed using dose modulation techniques as appropriate t o a performed exam including the following:Automated exposure control was utilized; adjustment of the MA and/or KV according to patient size; and use of iterative reconstruction technique. Radiation Dose Information: CT Dose: CTDI volume is 10.6 mGy. Dose-length product is 581.85 mGy*cm Comparison: None FINDINGS: Evaluation of the abdomen and pelvis is limited without intravenous contrast. The liver, gallbladder, pancreas, kidneys, adrenal glands, and spleen appear within normal limits. There is no gross evidence of abdominal lymphadenopathy. There is no free fluid or free air. The stomach grossly appears unremarkable. The small and large bowel loops demonstrate normal caliber and appear within normal limits.. A normal air-filled appendix is seen in the right lower quadrant abdomen. The abdominal aorta and IVC appear within normal limits. The bladder appears unremarkable for the degree of distention. Pelvic organ appears within normal lou[place] its. There is no gross evidence of a pelvic mass. There is no free fluid collection. Lung bases are clear. There is no acute osseous abnormality. IMPRESSION: 1. There is no acute process in the abdomen and pelvis. HS:Y
[2024-08-18] MEDS: cefTRIAXone 1GM/50ML D5W 50 ML IV ONE (11:01)
[2024-08-18] MEDS: AZITHROMYCIN 500MG/ 250ML 250 ML IV ONE (12:17)
--- NOTE | 2024-08-18 15:29 | DVHPNRES ---
Progress Note Date Seen: Aug 18, 2024 Resident Creating Document: RADHA PARMAR RESIDENT Medical Necessity Reason Pt with a Central, PICC or Fol: No Subjective Review of Systems CECILIA MCKENNA is a 39-year-old male Cambodian-speaking with a PMH of asthma, GERD, HTN presented to the ED with the chief complaints of difficulty breathing for past 2 weeks. Patient reported since 2 weeks he has been having more difficulty bleeding than usual, chest tightness, productive cough with yellow sputum, wheezing, few episodes of fever, chills which brought him to visit ED. Patient reported he has been using inhaler for asthma but did not help for past 2 weeks. Patient reported he will get this asthma attacks when no other is extreme cold and extreme heat and season changes. Patient also reported some sick contacts at work. on my assessment patient denies recent travel, Nausea, vomiting, diarrhea, chest pain, palpitations and other acute associated symptoms PMH: Asthma, GERD, HTN PSH: None Family history reviewed, noncontributory Social history: Lives with the family. occasional alcohol use but denies smoking, and other drug abuse Allergies: No known allergies Patient seen and examined at the bedside. Patient reported improvement in his symptoms since admission, reported new new complaints. Patient is currently receiving Solu-Medrol 40 mg, Rocephin and Zithromax along with breathing treatments. CXR showed no acute changes. Monitor for now. Objective vital signs Vital Sign Date Time Temp Pulse Resp B/P (MAP) Pulse Ox O2 Delivery O2 Flow Rate FiO2 08/18/24 12:44 97.6 71 16 132/78 (96) 98 97.6 08/18/24 11:10 Room Air 08/18/24 11:10 0 21 Total Intake and Output 08/17/24 08/17/24 08/18/24 15:00 23:00 07:00 Intake Total 100 ml Balance 100 ml medications Current Medications Medications Dose Ordered Sig/Bc Route Start Time Stop Time Status Last Admin Dose Admin Nitroglycerin 0.4 mg Q5MINP PRN SL 08/17/24 21:00 Morphine Sulfate 2 mg Q30M PRN IV 08/17/24 21:00 Ipratropium [employer] 0.5 mg Q4HWA NEB 08/17/24 22:00 08/18/24 11:10 0.5 MG Albuterol 2.5 mg Q4HWA NEB 08/17/24 22:00 08/18/24 11:10 2.5 MG Prednisone 40 mg DAILY PO 08/18/24 10:00 08/18/24 10:03 40 MG Enoxaparin Sodium 40 mg DAILY@2200 SC 08/18/24 22:00 Pantoprazole Sodium 40 mg DAILY@0600 PO 08/18/24 06:00 08/18/24 07:10 40 MG Montelukast Sodium 10 mg HS PO 08/18/24 22:00 Atorvastatin Calcium 40 mg HS PO 08/18/24 22:00 Loratadine 10 mg DAILY PO 08/18/24 10:00 08/18/24 10:03 10 MG Amlodipine Besylate 5 mg DAILY PO 08/18/24 10:00 08/18/24 10:03 5 MG Azithromycin 250 ml @ 125 mls/hr DAILY IV 08/19/24 10:00 Ceftriaxone Sodium 50 ml @ 100 mls/hr DAILY@09 IV 08/19/24 09:00 Examination Pt is lying on bed General Appearance: Alert, Oriented X3, Cooperative, Not in acute distress HEENT: Atraumatic, Mucous membranes moist/pink Respiratory: Clear to auscultation, Normal air movement, No added sounds Cardiovascular: Regular rate, Normal S1, Normal S2, No murmurs Abdominal: Active bowel sounds, Soft, no distention, no tenderness Extremities: No edema, Normal pulses, No tenderness/swelling Skin: No Significant rash, except past surgical scars Neuro: Normal speech, sensorimotor deficits none Psych/Mental Status: Mental status NL, Mood NL [facility] during examination laboratory and microbiology Laboratory Tests 08/18/24 08:04 Test 08/18/24 08:04 Range/Units Serum Glucose 107 #H 74-106 mg/dL Microbiology Date/Time Source Procedure Growth Status 08/18/24 06:40 Nose MRSA Screen - Final Complete Labs and/or images reviewed: Labs reviewed by me, Image(s) reviewed by me Problem List/Assessment/Plan Problem List/Assessment/Plan # Asthma exacerbation # acute hypoxic respiratory failure likely due to above # acute bronchitis # reactive leukocytosis - Patient is currently receiving Solu-Medrol 40 mg, Rocephin and Zithromax along with breathing treatments. - currently receiving loratadine, montelukast - CXR showed no acute changes. - Monitor for now. - on admission required oxygen 2 L on N/C # uncontrolled hypertension - continuously monitor - resumed home medications # GERD - Protonix Lovenox for now PPI cardiac diet Reconciled home meds Goals of care discussed with the patient for more than 27 minutes: Full code status Case management discussed with Dr. Engel, patient and nurse Plan discussed with: Patient My Orders My Orders Orders - RADHA PARMAR Procedure Category Date Status Time Cardiac DIET 08/18/24 Transmitted Diet-2gna,Lofat,Lochol Lunch Azithromycin 500mg/ PHA 08/19/24 In Process 250ml (Zithromax 50 10:00 Ceftriaxone 1gm/50ml PHA 08/19/24 In Process D5w (Rocephin) 09:00 Date of Service: Aug 18, 2024 Billing Provider: RONDA ENGEL MD Common Visit Codes: [id number] INP/OBS CARE(HIGH) RADHA PARMAR Aug 18, 2024 15:29 RONDA ENGEL MD Aug 21, 2024 19:39
[2024-08-18] MEDS: ATORVASTATIN 20 MG TAB PO SCH (21:11)
[2024-08-18] MEDS: MONTELUKAST SODIUM 10 MG TAB PO SCH (21:11)
[2024-08-18] MEDS: ENOXAPARIN SOD 40 MG/0.4 ML SYRINGE SC SCH (21:14)
[2024-08-19] VITALS (11 sets, daily range): BP systolic 114–131; BP diastolic 57–78; PULSE 61–86; RESP 12–18; TEMP 97.9–98.7; O2SAT 95–100
[2024-08-19 06:16] LABS: Basophils # (auto) 0 10 ^3/uL (0-0.2); Basophils % (auto) 0.3 % (0.0-2.0); Eosinophils # (auto) 0.1 10 ^3/uL (0-0.8); Eosinophils % (auto) 0.6 % (0.0-7.0); Hematocrit 37.9 % (41.0-53.0); Hemoglobin 13.3 g/dL (13.5-17.5); Lymphocytes # (auto) 2.6 10 ^3/uL (0.4-5.4); Mean Corpuscular Hemoglobin 30.7 pg (28.0-32.0); Mean Corpuscular Volume 87.7 fL (80.0-100.0); Monocytes # (auto) 0.7 10 ^3/uL (0-1.3); Monocytes % (auto) 5.8 % (0.0-12.0); Neutrophils # (auto) 9.4 10 ^3/uL (1.6-8.6); Neutrophils % (auto) 73.3 % (37.0-80.0); Platelet Count (auto) 382 10^3/uL (140-450); Red Blood Cells 4.32 10^6/uL (4.5-5.90); Red Cell Distribution Width 12.1 % (11.8-14.3); White Blood Cell 12.8 10^3/uL (4.4-10.8)
[2024-08-19 06:32] LABS: Anion Gap 9 (5-15); Carbon Dioxide 28 mmol/L (20-31); Chloride 104 mmol/L (98-107); Potassium 3.6 mmol/L (3.5-5.1); Sodium 141 mmol/L (136-145)
[2024-08-19 06:38] LABS: BUN/Creatinine Ratio 18.6 (10.0-20.0); Blood Urea Nitrogen 16 mg/dL (9-23); Glucose 101 mg/dL (74-106)
[2024-08-19] MEDS: cefTRIAXone 1GM/50ML D5W 50 ML IV SCH (10:54)
[2024-08-19] MEDS: AZITHROMYCIN 500MG/ 250ML 250 ML IV SCH (11:56)
[2024-08-19] MEDS ORDERED: BUDE1AER15 IN (14:09)
--- NOTE | 2024-08-19 14:32 | DVHDSRES ---
Discharge Summary Date of Admission Resident Creating Document: RADHA PARMAR RESIDENT Aug 17, 2024 at 20:54 Date of Discharge: Aug 19, 2024 Admitting Diagnosis # Asthma exacerbation # acute hypoxic respiratory failure likely due to above Labs/Diagnostic Data: Laboratory Results Test 08/19/24 05:05 08/18/24 08:50 08/18/24 08:04 08/18/24 00:54 White Blood Count 12.8 10^3/uL (4.4-10.8) Red Blood Count 4.32 10^6/uL (4.5-5.90) Hemoglobin 13.3 g/dL (13.5-17.5) Hematocrit 37.9 % (41.0-53.0) Mean Corpuscular Volume 87.7 fL (80.0-100.0) Mean Corpuscular Hemoglobin 30.7 pg (28.0-32.0) Mean Corpuscular Hemoglobin Concent 35.0 g/dL (32.0-36.0) Red Cell Distribution Width 12.1 % (11.8-14.3) Platelet Count 382 10^3/uL (140-450) Mean Platelet Volume 6.6 fL (6.9-10.8) Neutrophils (%) (Auto) 73.3 % (37.0-80.0) Lymphocytes (%) (Auto) 20.0 % (10.0-50.0) Monocytes (%) (Auto) 5.8 % (0.0-12.0) Eosinophils (%) (Auto) 0.6 % (0.0-7.0) Basophils (%) (Auto) 0.3 % (0.0-2.0) Neutrophils # (Auto) 9.4 10 ^3/uL (1.6-8.6) Lymphocytes # (Auto) 2.6 10 ^3/uL (0.4-5.4) Monocytes # (Auto) 0.7 10 ^3/uL (0-1.3) Eosinophils # (Auto) 0.1 10 ^3/uL (0-0.8) Basophils # (Auto) 0 10 ^3/uL (0-0.2) Nucleated Red Blood Cells 0.0 % Sodium Level 141 mmol/L (136-145) Potassium Level 3.6 mmol/L (3.5-5.1) Chloride Level 104 mmol/L (98-107) Carbon Dioxide Level 28 mmol/L (20-31) Anion Gap 9 (5-15) Blood Urea Nitrogen 16 mg/dL (9-23) Creatinine 0.86 mg/dL (0.700-1.30) Glomerular Filtration Rate Calc 112 mL/min (>90) BUN/Creatinine Ratio 18.6 (10.0-20.0) Serum Glucose 101 mg/dL (74-106) Calcium Level 10.0 mg/dL (8.7-10.4) Urine Color Light-yellow (Yellow) Urine Clarity Clear (Clear) Urine pH 6.5 (5.0-9.0) Urine Specific [place] 1.012 (1.001-1.035) Urine Protein Negative (Negative) Urine Ketones Negative (Negative) Urine Blood Negative /uL (Negative) Urine Nitrite Negative (Negative) Urine Bilirubin Negative (Negative) Urine Urobilinogen Normal mg/dL (Negative) Urine Leukocyte Esterase Negative /uL (Negative) Urine RBC <1 /hpf (0 - 3) Urine WBC None seen /hpf (0 - 3) Urine Squamous Epithelial Cells None seen /hpf (<5) Urine Bacteria None seen /hpf (None Seen) Urine Glucose Normal mg/dL (Normal) Urine Opiates Screen Neg (NEGATIVE) Urine Fentanyl Screen Neg (NEGATIVE) Urine Barbiturates Screen Neg (NEGATIVE) Urine Phencyclidine Screen Neg (NEGATIVE) Urine Amphetamines Screen Neg (NEGATIVE) Urine Benzodiazepines Screen Neg (NEGATIVE) Urine Cocaine Screen Neg (NEGATIVE) Urine Cannabinoids Screen Neg (NEGATIVE) Hemoglobin A1c 5.4 % A1C (<5.7) Total Bilirubin 0.4 mg/dL (0.2-1.0) Aspartate Amino Transferase (AST) 26 U/L (13-40) Alanine Aminotransferase (ALT) 69 U/L (7-40) Alkaline Phosphatase 79 U/L (46-116) Total Protein 6.7 g/dL (5.7-8.2) Albumin 4.1 g/dL (3.2-4.8) Triglycerides Level 100 mg/dL (< 150) Cholesterol Level 161 mg/dL (< 200) LDL Cholesterol 101 mg/dL (< 100) HDL Cholesterol 43 mg/dL (40-59) Troponin I High Sensitivity 7 ng/L (</=54) Test 08/17/24 23:04 08/17/24 22:12 08/17/24 22:01 08/17/24 14:04 Influenza Type A Antigen Negative (Negative) Influenza Type B Antigen Negative (Negative) SARS-CoV-2 Antigen (Rapid) Negative (NEGATIVE) B-Type Natriuretic Peptide 42.77 pg/mL (0-100) Thyroid Stimulating Hormone (TSH) 0.27 uIU/mL (0.55-4.78) Free Thyroxine (T4) Calculated 0.97 ng/dL (0.89-1.76) Free Triiodothyronine (T3) pg/mL 3.01 pg/mL (2.3-4.2) Plasma/Serum Blood Alcohol 3.1 mg/dL (<10) Blood Gas Specimen Type Arterial Blood Gas Sample Site Right radial Blood Gas Patient Temperature 37.0 Arterial Blood Date Drawn Arterial Blood pH 7.411 (7.350-7.450) Arterial Blood Partial Pressure CO2 37.6 mmHg (35.0-48.0) Arterial Blood Partial Pressure O2 84.1 mmHg (83.0-108.0) Arterial Blood HCO3 23.4 mmol/L (21.0-28.0) Arterial Blood Oxygen Saturation 96.2 % (94.0-98.0) Arterial Blood Base Excess -0.9 mmol/L (-2.0-3.0) Arterial Blood Oxyhemoglobin 95.5 % (94.0-98.0) Arterial Blood Carboxyhemoglobin 0.3 % (0.5-1.5) Arterial Blood Methemoglobin 0.4 % (0.0-1.5) Jona Test Modified Blood Gas Total Hemoglobin 14.40 g/dL (13.5-17.5) Blood Gas Modality Room air FiO2 % 21.0 D-Dimer, Quantitative 0.30 mg/L FEU (0.0-0.49) Other Laboratory Tests 08/19/24 05:05 Brief Hx & Hospital Course: JEFF CECILIA LINN is a 39-year-old male Estonian-speaking with a PMH of asthma, GERD, HTN presented to the ED with the chief complaints of difficulty breathing for past 2 weeks. Patient reported since 2 weeks he has been having more difficulty bleeding than usual, chest tightness, productive cough with yellow sputum, wheezing, few episodes of fever, chills which brought him to visit ED. Patient reported he has been using inhaler for asthma but did not help for past 2 weeks. Patient reported he will get this asthma attacks when no other is extreme cold and extreme heat and season changes. Patient also reported some sick contacts at work. on my assessment patient denies recent travel, Nausea, vomiting, diarrhea, chest pain, palpitations and other acute associated symptoms Patient diagnosed as acute asthma exacerbation which required hospital admission for further evaluation and management. Patient was penicillin oxygen, weaned of gradually. Patient received Solu-Medrol 40 mg, Rocephin and Zithromax along with breathing treatments. CXR showed no acute changes. Patient was continuously monitored for respiratory distress symptoms. Patient received laboratory and montelukast and other supportive treatments. Patient condition was improved, hemodynamically stable and in condition to be discharged home with optimal medical treatment. Discharge plan discussed with the patient and agreed to the plan. Patient was advised about healthy lifestyle habits including diet, exercise and to follow up with PCP. General Appearance: Alert, Oriented X3, Cooperative, Not in acute distress HEENT: Atraumatic, Mucous membranes moist/pink Respiratory: Clear to auscultation, Normal air movement, No added sounds Cardiovascular: Regular rate, Normal S1, Normal S2, No murmurs Abdominal: Active bowel sounds, Soft, no distention, no tenderness Extremities: No edema, Normal pulses, No tenderness/swelling Skin: No Significant rash, except past surgical scars Neuro: Normal speech, sensorimotor deficits none Psych/Mental Status: Mental status NL, Mood NL Nurse was there as sharperone during examination Operations or Procedures CT ABDOMEN AND PELVIS WITHOUT CONTRAST 1. There is no acute process in the abdomen and pelvis. CXRY - showed no acute abnormalities Condition at Discharge: Stable Final Diagnosis/Problems List # Asthma exacerbation # acute hypoxic respiratory failure likely due to above # acute bronchitis # reactive leukocytosis # uncontrolled hypertension # GERD # reactive leukocytosis Discharge Disposition: Home Discharge Instruct/Medications Diet: Consistent carbohydrate, Cardiac 2g Na,low cholest Activity: No Restrictions, As Tolerated Follow Up/Referral: PCP Medications: per EMR Discharge Statement: "Patient was advised to return to the ER or call 911 if any headaches, dizziness, shortness of breath, chest pain, abdominal pain, bleeding, fevers, or worsening of medical condition. Patient was counseled about treatment plan, medications, possible side effects, patientverbalized understanding. All questions were answered to the best of my ability. This discharge took greater then 30 minutes in planning, reviewing documentation, counseling the patient, and discussing with other team members." ASSESSMENT ASSESSMENT Assessment # Asthma exacerbation # acute hypoxic respiratory failure likely due to above # acute bronchitis # reactive leukocytosis Date of Service: Aug 19, 2024 Billing Provider: RONDA ENGEL MD Common Visit Codes: [id number] DISCH DAY >30min RADHA PARMAR RESIDENT Aug 19, 2024 14:32 RONDA ENGEL MD Aug 21, 2024 19:39
== END 2024-08-19 16:00 | disposition home or self-care (01) | DRG 145 ==
LOC: ER 13:28 → TELE 20:54 → TELE-CENTR 08-18 06:10
PROVIDERS: ADMIT Internal Medicine Geriatric Medicine; ATTEND Internal Medicine Geriatric Medicine
DX: J20.9 Acute bronchitis, unspecified (principal); J96.01 Acute respiratory failure with hypoxia; J45.902 Unspecified asthma with status asthmaticus; J45.901 Unspecified asthma with (acute) exacerbation; K21.9 Gastro-esophageal reflux disease without esophagitis; Z20.822 Contact with and (suspected) exposure to COVID-19; I10 Essential (primary) hypertension; E78.5 Hyperlipidemia, unspecified; E05.90 Thyrotoxicosis, unspecified without thyrotoxic crisis or storm; D72.829 Elevated white blood cell count, unspecified
CPT/HCPCS: 36415; 36600; 71046; 74176; 80048; 80053; 80061; 80307; 80320; 81001; 82805; 83036; 83880; 84439; 84443; 84481; 84484; 85025; 85379; 87081; 87426; 87804; 94640; 94644; 99291; G0378